=== PATIENT | female | born 1950 | race Caucasian/White ===

== ENCOUNTER 2016-10-08 17:30 | Observation (INO) | payer MEDICARE, OTHER ==
[2016-10-08] MEDS ORDERED: FISH OIL 1,4001 EAC1 PO (17:38)
[2016-10-08] MEDS ORDERED: MULTIVITAMINS1 EAC1 PO (17:39)
[2016-10-08] MEDS ORDERED: CITRACAL + D31 EACH (17:39)
[2016-10-08] MEDS ORDERED: PRINIVIL20 M1 PO (17:39)
[2016-10-08] MEDS ORDERED: OMEPRAZOLE20 M3 PO (17:39)
[2016-10-08] MEDS ORDERED: FIBERCON625 M2 PO (17:39)
[2016-10-08] MEDS ORDERED: MOBIC15 M2 PO (17:40)
[2016-10-08] MEDS ORDERED: TYLENOL COLD &1 EAC1 PO (17:40)
[2016-10-08] MEDS ORDERED: LIPITOR20 M1 PO (17:40)
[2016-10-08] MEDS ORDERED: [UNRECOGNIZED DRUG - OTHER] PO (17:40)
[2016-10-08 17:47] LABS: BASO % 0.6 % (0-2); EOS % 3.5 % (0-7); EOSINOPHIL ABSOLUTE COUNT 0.3 tho/cmm (0.0-0.7); HCT-HEMATOCRIT 35.1 % (34.0-49.0); HGB-HEMOGLOBIN 11.6 gm/dl (12.0-15.5); IMMATURE GRANULOCYTES ABSOLUTE 0.01 tho/cmm (0-0.03); IMMATURE GRANULOCYTES PERCENT 0.1 % (0-0.3); LYMPH % 29.3 % (20-45); LYMPH ABSOLUTE COUNT 2.1 tho/cmm (0.8-4.5); MCH (MEAN CORPUSCULAR HGB) 28.9 pg (28.0-32.0); MCV (MEAN CELL VOLUME) 87.3 fl (82.0-96.0); MEAN PLATELET VOLUME 8.9 cmc (9.4-12.4); MONO % 7.8 % (0-12); MONOCYTE ABSOLUTE COUNT 0.6 tho/cmm (0.0-1.2); NEUTROPHIL ABSOLUTE COUNT 4.2 tho/cmm (1.6-8.0); NEUTROPHIL-AUTOMATED 4.2 tho/cmm (1.6-8.0); NEUTROPHILS % 58.7 % (40-80); PLATELET COUNT 267 tho/cmm (150-450); RED BLOOD COUNT 4.02 mil/cmm (4.00-5.20); RED CELL DISTRIBUTION WIDTH 14.2 % (12.4-16.4); WHITE BLOOD COUNT 7.2 tho/cmm (4.0-10.0)
[2016-10-08 18:05] LABS: ANION GAP 12 mmol/L (0-20); BLOOD UREA NITROGEN 10 mg/dl (6-24); CALCIUM 10.3 mg/dl (8.5-10.5); CARBON DIOXIDE-VENOUS 26 mmol/L (22-32); CHLORIDE 96 mmol/l (96-110); CREATININE 0.79 mg/dl (0.50-1.10); GLUCOSE 135 mg/dL (70-110); POTASSIUM 3.9 mmol/L (3.7-5.1); SODIUM 130 mmol/L (135-145); eGFR VALUE FOR BLACK >90 mL/Min
[2016-10-09] MEDS ORDERED: ASPIRIN81 M1 PO (15:48)
[2016-10-12] MEDS ORDERED: COLACE100 M1 PO (12:34)
[2016-10-12] MEDS ORDERED: FLONASE ALLERG9.9 ML (12:34)
== END 2016-10-09 16:45 ==
LOC: EDMED 17:30 → EMR2 21:28 → 5WE 21:37
PROVIDERS: Emergency Medicine; ADMIT Internal Medicine Cardiovascular Disease
DX: R07.89 Other chest pain (principal); R20.0 Anesthesia of skin; I10 Essential (primary) hypertension; E78.5 Hyperlipidemia, unspecified; Z79.899 Other long term (current) drug therapy; Z98.890 Other specified postprocedural states; Z98.51 Tubal ligation status
CPT/HCPCS: A9500; G0378; J2785